=== PATIENT | female | born 1980 | race Caucasian/White ===

== ENCOUNTER 2017-03-26 15:34 | Emergency (ER) | payer OTHER ==
[2017-03-26 15:38] VITALS: BP 111/65; PULSE 98; TEMP 98; BMI 45.7
--- NOTE | 2017-03-26 15:56 | PDOC ---
History of Present Illness - General Chief Complaint: Pain Stated Complaint: PAIN Time Seen by Provider: 03/26/17 15:46 History Source: Patient Exam Limitations: No Limitations - History of Present Illness Initial Comments: CHIEF COMPLAINT: 37 y/o afebrile female, [employer] employee, c/o atraumatic left shoulder pain. HISTORY OF PRESENT ILLNESS: The patient states she woke up from sleep 2 days ago with left shoulder pain that is progressively getting worse. She cannot lift her left arm or put on a shirt without help. She denies trauma to the area , fall, heaving lifting. She has been taking Motrin for pain. Vital signs on arrival are notable for pulse of 98. REVIEW OF SYSTEMS: GENERAL/CONSTITUTIONAL: No fever/chills. No weakness. No weight change. HEAD, EYES, EARS, NOSE AND THROAT: No change in vision. No ear pain or discharge. No sore throat. MUSCULOSKELETAL: +left shoulder pain. No neck or back pain. SKIN: No rash or easy bruising. NEUROLOGIC: No headache, vertigo, loss of consciousness, or loss of sensation. PHYSICAL EXAM: VITAL_SIGNS: within normal limits GENERAL_APPEARANCE: alert, cooperative, mild obvious discomfort. The patient is holding her left arm at her side. MENTAL_STATUS: speech clear, oriented X 3, responds appropriately to questions. NEURO: motor intact and sensory intact in injured extremity. EXTREMITIES: Left anterior AC joint TTP with reproduction of pain radiating down left arm. Pt cannot abduct left arm > 30 degrees. Positive internal rotation lag test and external rotation resistance test. SKIN: warm, dry, good color. Past History - Past Medical History Allergies/Adverse Reactions: Allergies Allergy/AdvReac Type Severity Reaction Status Date / Time No Known Drug Allergies Allergy Verified 03/26/17 16:13 SEAFOOD Allergy Rash Uncoded 03/26/17 15:38 Home Medications: Ambulatory Orders Methocarbamol [Robaxin -] 1,000 mg PO TID #30 tablet 03/26/17 Asthma: Yes - Surgical History Cholecystectomy: Yes - Psycho/Social/Smoking Cessation Hx Anxiety: No Suicidal Ideation: No Smoking History: Former smoker Have you smoked in the past 12 months: No Number of Cigarettes Smoked Daily: 2 If you are a former smoker, when did you quit?: 1 YR Information on smoking cessation initiated: No Hx Alcohol Use: Yes (SOCIAL) Drug/Substance Use Hx: No Substance Use Type: None *Physical Exam - Vital Signs Last Vital Signs Temp Pulse Resp BP Pulse Ox 98.0 F 98 H 20 111/65 96 03/26/17 15:36 03/26/17 15:36 03/26/17 15:36 03/26/17 15:36 03/26/17 15:36 Medical Decision Making - Medical Decision Making A/P: 37 y/o female with most likely left rotator cuff tendinopathy. Plan is as follows: 1. Xray left shoulder 2. PO robaxin Xray left shoulder IMPRESSION: (wet read) No shoulder separation. The patient was given her results. Will discharge to home with rx for robaxin and instructed her to continue taking ibuprofen. Gave her stretches to perform multiple times/day and strongly encouraged Ortho follow up as soon as possible. Pt instructed to return to the ER with any worsening or concerning symptoms. The patient verbalizes understanding of all instructions, has no further questions and is awaiting discharge. *DC/Admit/Observation/Transfer Diagnosis at time of Disposition: Tendinopathy of left rotator cuff - Discharge Dispostion Disposition: HOME Condition at time of disposition: Good - Prescriptions Prescriptions: Methocarbamol [Robaxin -] 1,000 mg PO TID #30 tablet - Referrals Referrals: Rakesh Marino MD [Primary Care Provider] - Magnus Vázquez MD [Staff Physician] - - Patient Instructions Printed Discharge Instructions: DI for Rotator Cuff Injury, How To Perform RICE (Rest, Ice, Compress, Elevate) Additional Instructions: Discharge Instructions: -Continue taking Ibuprofen every 6 hours with food -Take Robaxin as prescribed; may cause drowsiness -Walk your left hand up the wall multiple times per day to prevent frozen shoulder -Follow RICE instructions -Follow up with Dr. Vázquez as soon as possible -Return to the ER with any worsening or concerning symptoms - Post Discharge Activity Work/School Note: Back to Work
[2017-03-26] MEDS ORDERED: METHOCARBAMOL 500 MG TABLET PO ONE (16:05)
== END 2017-03-26 17:22 | disposition home or self-care (01) ==
LOC: JERFT 15:34
DX: M65.812 Other synovitis and tenosynovitis, left shoulder (principal)
CPT/HCPCS: 73030-TC-LT; 99281-25

== ENCOUNTER 2017-11-24 10:23 | Emergency (ER) | payer OTHER ==
[2017-11-24 10:41] VITALS: BP 120/67; PULSE 83; TEMP 98; BMI 43.2
[2017-11-24] MEDS ORDERED: ALBUTEROL SO4 18 GM HFA INHALER IH ONE (11:20)
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
[2017-11-24] MEDS ORDERED: predniSONE 20 MG TABLET (UD) PO ONE (11:24)
[2017-11-24] MEDS ORDERED: predniSONE 20 MG TABLET (UD) ONE (11:36)
== END 2017-11-24 11:39 | disposition home or self-care (01) ==
LOC: JERFT 10:23 → JER 10:23 → JERFT 11:39
DX: O26.891 Other specified pregnancy related conditions, first trimester (principal); M54.5 Low back pain; Z3A.11 11 weeks gestation of pregnancy
CPT/HCPCS: 99281-25

== ENCOUNTER 2019-06-28 04:19 | Inpatient (IN) | payer OTHER ==
[2019-06-28] MEDS ORDERED: ALBUTEROL SO4 2.5/IPRATROPIUM 0.5 INH SOL 3 ML VIAL.NEB. NEB ONE ×3 (04:23→10:09)
[2019-06-28] MEDS ORDERED: methylPREDNISolone NA SUCC 125 MG/2 ML VIAL IVPB ONE (04:27)
[2019-06-28] MEDS ORDERED: methylPREDNISolone NA SUCC 125 MG/2 ML VIAL ONE (04:31)
[2019-06-28] MEDS ORDERED: MAGNESIUM 1GM/D5W - 1 GM/100 ML IVPB IVPB ONE ×2 (04:31→04:35)
--- NOTE | 2019-06-28 04:53 | PDOC ---
History of Present Illness - General Chief Complaint: Asthma Stated Complaint: ASTHMA Time Seen by Provider: 06/28/19 04:22 History Source: Patient Exam Limitations: No Limitations - History of Present Illness Initial Comments: 06/28/19 04:46 39F w/ pmh of asthma presents [facility] with complaint of wheezy cough w/a chest tightness since ~1999. At home, tried nebulized albuterol x4 w/ little relief. Last week had sickness w/ fever, rhinorrhea, sneezing, nonproductive cough. Took albuterol inhaler every night for a week. Last month, took inhaler occasionally, on hot nights. Denies sick contacts. Hasn't had an asthma attack requiring hospital visit since she was much younger. Formerly, had inhaled steroids but hasn't taken it since she was younger. Has a hypoallogenic poodle. Smokes socially. Timing/Duration: 4-6 hours Severity: moderate Associated Symptoms: reports: cough Past History - Travel Traveled outside of the country in the last 30 days: No Close contact w/someone who was outside of country & ill: No - Past Medical History Allergies/Adverse Reactions: Allergies Allergy/AdvReac Type Severity Reaction Status Date / Time No Known Drug Allergies Allergy Verified 06/28/19 04:28 SEAFOOD Allergy Rash Uncoded 06/28/19 04:28 Home Medications: Ambulatory Orders Albuterol 0.083% Nebulizer Mercedes [Ventolin 0.083%] 1 neb NEB Q4H PRN 06/28/19 Albuterol Sulfate Inhaler - [Ventolin Hfa Inhaler -] 1 - 2 inh PO PRN PRN Asthma: Yes COPD: No DVT: No Diabetes: Yes - Surgical History Cholecystectomy: Yes - Family Disease History Family Disease History: Diabetes: Mother (DM), Heart Disease: Mother - Immunization History Immunization Up to Date: Yes - Suicide/Smoking/Psychosocial Hx Smoking Status: Yes (social smoker) Have you smoked in the past 12 months: No Number of Cigarettes Smoked Daily: 2 If you are a former smoker, when did you quit?: 1 year ago Hx Alcohol Use: Yes Drug/Substance Use Hx: No Substance Use Type: None Review of Systems - Review of Systems Able to Perform ROS?: Yes Is the patient limited Nepali proficient: No Constitutional: No: Chills, Fever HEENTM: No: Blurred Vision, Double Vision, Difficulty Swallowing Respiratory: Yes: Cough, SOB at Rest, Wheezing Cardiac (ROS): Yes: Other (chest tightness). No: Irregular Heart Rate, Palpitations ABD/GI: No: Abdominal Distended, Constipated, Diarrhea, Nausea, Vomiting : No: Dysuria, Urgency Musculoskeletal: No: Muscle Weakness Integumentary: No: Bruising Neurological: No: Headache, Numbness *Physical Exam - Vital Signs Last Vital Signs Temp Pulse Resp BP Pulse Ox 98.3 F 106 H 26 H 161/70 100 06/28/19 04:26 06/28/19 04:26 06/28/19 04:26 06/28/19 04:26 06/28/19 04:26 - Physical Exam General Appearance: Yes: Nourished, Mild Distress, Obese HEENT: positive: Other (speaking in two-three word phrases prior to experiencing cough). negative: Pale Conjunctivae, Scleral Icterus (R), Scleral Icterus (L) Neck: positive: Trachea midline. negative: Tender, Stridor, Lymphadenopathy (R) , Lymphadenopathy (L) Respiratory/Chest: positive: Rapid RR, Wheezing (expiratory wheezes throughout lungs). negative: Crackles Cardiovascular: positive: Regular Rhythm, S1, S2, Tachycardia Gastrointestinal/Abdominal: positive: Soft. negative: Guarding, Rebound, Tenderness, Hernia Neurologic: positive: Fully Oriented, Alert ED Treatment Course - LABORATORY CBC & Chemistry Diagram: 06/28/19 05:30 06/28/19 05:30 Medical Decision Making - Medical Decision Making 06/28/19 05:14 39F w/ obesity and h/o of asthma presenting with nonproductive cough w/a wheezing and chest tightness likely 2/2 acute asthma exacerbation. - duonebs [id number] x3 - solumedrol 125mg - magnesium 2g at 100cc/h 06/28/19 05:57 - pt endorses slight improvement - lungs w/ continued expiratory wheezes 06/28/19 06:01 - decision to admit 06/28/19 06:48 - patient endorses feeling much better - able to speak short sentences - lungs with very mild expiratory wheezes *DC/Admit/Observation/Transfer Diagnosis at time of Disposition: Asthma attack Qualifiers: Asthma severity: severe Asthma persistence: unspecified Qualified Code(s): J45.901 - Unspecified asthma with (acute) exacerbation - Discharge Dispostion Condition at time of disposition: Stable Decision to Admit order: Yes - Referrals - Patient Instructions - Post Discharge Activity
--- NOTE | 2019-06-28 05:03 | PDOC ---
Attending Attestation - Resident Resident Name: Ferny Pan - ED Attending Attestation I have performed the following: I have examined & evaluated the patient, The case was reviewed & discussed with the resident, I agree w/resident's findings & plan - HPI HPI: 06/28/19 04:27 39-year-old female with asthma exacerbation, patient has tried multiple nebulizer treatments at home without relief - Physicial Exam PE: 06/28/19 05:03 agree with resident exam - Medical Decision Making 06/28/19 05:04 39-year-old female with asthma exacerbation Patient has had some improvement after additional nebulizer treatments Same Medrol 125 mg as well as magnesium 2 g IV piggyback currently being administered Plan for re-eval, at this point admission may be necessary if patient does not greatly improve
[2019-06-28 05:59] LABS: HEMATOCRIT 31.8 % (32.4-45.2); HEMOGLOBIN 10.5 GM/dL (10.7-15.3); MCH 27.1 pg (25.7-33.7); MEAN CELL VOLUME 82.1 fl (80-96); MEAN PLT VOLUME 9.3 fl (7.5-11.1); PLATELET COUNT 260 K/MM3 (134-434); RBC 3.88 M/mm3 (3.60-5.2); RDW 14.9 % (11.6-15.6); WHITE BLOOD COUNT 7.4 K/mm3 (4.0-10.0)
[2019-06-28] MEDS ORDERED: ALBUTEROL SO4 0.083% IH SOL 2.5 MG/3 ML VIAL.NEB. NEB ONE ×3 (06:10→18:03)
[2019-06-28 07:24] LABS: ALBUMIN 3.3 g/dl (3.4-5.0); BILIRUBIN,TOTAL 0.1 mg/dL (0.2-1); BLOOD UREA NITROGEN 8.6 mg/dL (7-18); CALCIUM 8.6 mg/dL (8.5-10.1); CREATININE 0.8 mg/dL (0.55-1.3); MAGNESIUM 2.8 mg/dL (1.8-2.4); POTASSIUM 3.6 mmol/L (3.5-5.1); TOT PROT 6.8 g/dl (6.4-8.2)
[2019-06-28] MEDS ORDERED: AZITHROMYCIN IVPB 500 MG/250 ML BAG IVPB ONE ×2 (08:44→09:00)
[2019-06-28] MEDS ORDERED: HEPARIN NA (PORCINE) 5,000 UNITS/ML 1ML VIAL ONE (08:44)
[2019-06-28] MEDS ORDERED: methylPREDNISolone NA SUCC 40 MG/1 ML VIAL ONE ×2 (08:45→18:02)
[2019-06-28] MEDS ORDERED: CEFTRIAXONE 1 GM/50 ML BAG ONE (08:45)
[2019-06-28] MEDS: HEPARIN NA (PORCINE) 5,000 UNITS/ML 1ML VIAL SQ SCH ×2 (09:09→21:11)
[2019-06-28] MEDS ORDERED: CEFTRIAXONE 1 GM in DEXTROSE 5%-WATER - 50 ML IVPB SCH (10:00)
[2019-06-28] MEDS ORDERED: methylPREDNISolone NA SUCC 40 MG/1 ML VIAL IVPUSH SCH (10:00)
[2019-06-28] MEDS: ALBUTEROL SO4 2.5/IPRATROPIUM 0.5 INH SOL 3 ML VIAL.NEB. NEB PRN (10:15)
--- NOTE | 2019-06-28 11:57 | CON.PULM ---
Consult Consult Specialty:: PULM/CCM Referred by:: CHRIS Reason for Consultation:: SOB - History of Present Illness Chief Complaint: SOB History of Present Illness: 39 F, remote history of asthma as a child. Last acute exacerbation was age 13. Since that time very sporadic use of Albuterol. Never intubated or steroid dependent. Unknown PEF. @ weeks ago developed ENT / URI symptoms. Late last night had progressive SOB that was not alleviated by her nebulizer. No recent travel history or sick contacts. Does have daily GERD symptoms. According to her she does snore and does have witnessed apneas. CXR: normal - History Source Limitations to Obtaining History: No Limitations - Past Medical History Pulmonary: Yes: Asthma, Bronchitis, Sleep Apnea. No: Cancer, COPD, O2 Dependent , Pneumonia, Previously Intubated, Pulmonary Embolus, Pulmonary Fibrosis - Alcohol/Substance Use Hx Alcohol Use: Yes - Smoking History Smoking history: Unknown if ever smoked Have you smoked in the past 12 months: No Aproximately how many cigarettes per day: 2 If you are a former smoker, when did you quit?: 1 year ago Home Medications - Allergies Allergies/Adverse Reactions: Allergies Allergy/AdvReac Type Severity Reaction Status Date / Time No Known Drug Allergies Allergy Verified 06/28/19 04:28 SEAFOOD Allergy Rash Uncoded 06/28/19 04:28 - Home Medications Home Medications: Ambulatory Orders Albuterol 0.083% Nebulizer Mercedes [Ventolin 0.083%] 1 neb NEB Q4H PRN 06/28/19 Albuterol Sulfate Inhaler - [Ventolin Hfa Inhaler -] 1 - 2 inh PO PRN PRN Review of Systems - Review of Systems Constitutional: reports: Malaise. denies: Chills, Fever, Night Sweats, Unintentional Wgt. Loss Eyes: reports: No Symptoms HENT: reports: No Symptoms Neck: reports: No Symptoms Cardiovascular: reports: Shortness of Breath. denies: Chest Pain, Edema, Palpitations Respiratory: reports: Cough, Snoring, SOB, SOB on Exertion, Wheezing. denies: Hemoptysis, Orthopnea, PND Gastrointestinal: reports: Indigestion Genitourinary: reports: No Symptoms Breasts: reports: No Symptoms Reported Musculoskeletal: reports: No Symptoms Integumentary: reports: No Symptoms Neurological: reports: No Symptoms Endocrine: reports: No Symptoms Hematology/Lymphatic: reports: No Symptoms Psychiatric: reports: No Symptoms Physical Exam Vital Sings: Vital Signs Temperature 98.3 F 06/28/19 04:26 Pulse Rate 106 H 06/28/19 04:26 Respiratory Rate 26 H 06/28/19 04:26 Blood Pressure 161/70 06/28/19 04:26 O2 Sat by Pulse Oximetry (%) 97 06/28/19 08:28 Constitutional: Yes: No Distress, Obese Eyes: Yes: Conjunctiva Clear, EOM Intact HENT: Yes: Atraumatic, Normocephalic Neck: Yes: Supple, Trachea Midline Cardiovascular: Yes: Regular Rate and Rhythm Respiratory: Yes: Cough, Diminished, Rhonchi, SOB, SOB on Exertion, Tachypnea, Wheezes. No: Accessory Muscle Use, Rales, Stridor ...Inspection: Yes: WNL ...Clubbing: No Gastrointestinal: Yes: Normal Bowel Sounds, Soft, Abdomen, Obese Renal/: Yes: WNL Musculoskeletal: Yes: WNL Extremities: Yes: WNL Edema: No Peripheral Pulses WNL: Yes Integumentary: Yes: WNL Neurological: Yes: WNL, Alert, Oriented ...Motor Strength: WNL Psychiatric: Yes: WNL, Alert, Oriented Labs: CBC, BMP 06/28/19 05:30 06/28/19 05:30 Imaging - Results Chest X-ray: Report Reviewed, Image Reviewed Problem List - Problems (1) Morbid obesity Code(s): E66.01 - MORBID (SEVERE) OBESITY DUE TO EXCESS CALORIES (2) Acute bronchitis Code(s): J20.9 - ACUTE BRONCHITIS, UNSPECIFIED (3) Sleep apnea Code(s): G47.30 - SLEEP APNEA, UNSPECIFIED (4) Asthma attack Code(s): J45.901 - UNSPECIFIED ASTHMA WITH (ACUTE) EXACERBATION Qualifiers: Asthma severity: severe Asthma persistence: unspecified Qualified Code(s) : J45.901 - Unspecified asthma with (acute) exacerbation Assessment/Plan Medrol BD TX standing and PRN O2 as needed No smoking Will need sleep screen as an outpatient Singulair Will need GERD management Would monitor off ABX Will need PFTs once stable as an outpatient Daily AM PEF ordered Will follow Thank you. Dr Brar
--- NOTE | 2019-06-28 13:49 | EKG ---
Test Reason : Blood Pressure : / mmHG Vent. Rate : 106 BPM Atrial Rate : 106 BPM P-R Int : 132 ms QRS Dur : 088 ms QT Int : 358 ms P-R-T Axes : 055 002 -03 degrees QTc Int : 475 ms SINUS TACHYCARDIA MINIMAL VOLTAGE CRITERIA FOR LVH, MAY BE NORMAL VARIANT NONSPECIFIC T WAVE ABNORMALITY ABNORMAL ECG NO PREVIOUS ECGS AVAILABLE Confirmed by FRANCI SANCHEZ MD ([id number]) on 06/28/2019 1:48:49 PM Referred By: Confirmed By:FRANCI SANCHEZ MD
[2019-06-28] MEDS: ALBUTEROL SO4 0.083% IH SOL 2.5 MG/3 ML VIAL.NEB. NEB SCH ×3 (13:56→21:25)
[2019-06-28] MEDS: methylPREDNISolone NA SUCC 125 MG/2 ML VIAL IVPUSH SCH (18:21)
[2019-06-28] MEDS ORDERED: MONTELUKAST NA 10 MG TABLET PO SCH (22:00)
[2019-06-28 23:53] VITALS: BMI 49.8
--- NOTE | 2019-06-29 00:32 | HP ---
Admitting History and Physical - Admission History of Present Illness: Pt is a 39 y/o female w/ pmh significant for asthma. Pt presents to the ER with complaint of wheezy cough w/a chest tightness that developed suddenly the night prior to admission. At home pt used nebulized albuterol x4 w/ little relief. Last week had sickness w/ fever, rhinorrhea, sneezing, nonproductive cough. Took albuterol inhaler every night for a week. Pt hasn't had an asthma attack requiring hospital visit since childhoodr. Formerly, had inhaled steroids but hasn't taken it since she was younger. - Past Medical History Pulmonary: Yes: Asthma, Sleep Apnea - Smoking History Smoking history: Unknown if ever smoked Have you smoked in the past 12 months: No Aproximately how many cigarettes per day: 2 If you are a former smoker, when did you quit?: 1 year ago - Alcohol/Substance Use Hx Alcohol Use: Yes Home Medications - Allergies Allergies/Adverse Reactions: Allergies Allergy/AdvReac Type Severity Reaction Status Date / Time No Known Drug Allergies Allergy Verified 06/28/19 04:28 SEAFOOD Allergy Rash Uncoded 06/28/19 04:28 - Home Medications Home Medications: Ambulatory Orders Albuterol 0.083% Nebulizer Mercedes [Ventolin 0.083%] 1 neb NEB Q4H PRN 06/28/19 Albuterol Sulfate Inhaler - [Ventolin Hfa Inhaler -] 1 - 2 inh PO PRN PRN Family Disease History - Family Disease History Family History: Unremarkable Review of Systems - Review of Systems Constitutional: reports: Lethargy Eyes: reports: No Symptoms HENT: reports: No Symptoms Neck: reports: No Symptoms Cardiovascular: reports: Shortness of Breath Respiratory: reports: Cough, SOB, Wheezing Gastrointestinal: reports: No Symptoms Genitourinary: reports: No Symptoms Physical Examination Vital Signs: Vital Signs Temperature 98.2 F 06/28/19 12:00 Pulse Rate 115 H 06/28/19 15:31 Respiratory Rate 20 06/28/19 15:31 Blood Pressure 142/82 06/28/19 15:31 O2 Sat by Pulse Oximetry (%) 98 06/28/19 15:31 Constitutional: Yes: Well Nourished, Obese Eyes: Yes: WNL HENT: Yes: WNL Neck: Yes: WNL, Supple Cardiovascular: Yes: WNL, Regular Rate and Rhythm, Tachycardia Respiratory: Yes: Wheezes Gastrointestinal: Yes: WNL, Normal Bowel Sounds, Soft, Abdomen, Obese Extremities: Yes: WNL Edema: No Neurological: Yes: WNL, Alert, Oriented ...Motor Strength: WNL Labs: CBC, BMP 06/28/19 05:30 06/28/19 05:30 Problem List - Problems (1) Asthma exacerbation Assessment/Plan: Cont IV [id number] Cont nebulizers Pulmonary consult Will dc antibxs CXR was normal and WBC was normal Code(s): J45.901 - UNSPECIFIED ASTHMA WITH (ACUTE) EXACERBATION (2) Morbid obesity Code(s): E66.01 - MORBID (SEVERE) OBESITY DUE TO EXCESS CALORIES
[2019-06-29] MEDS: methylPREDNISolone NA SUCC 125 MG/2 ML VIAL IVPUSH SCH ×2 (02:07→10:01)
[2019-06-29] MEDS: ALBUTEROL SO4 2.5/IPRATROPIUM 0.5 INH SOL 3 ML VIAL.NEB. NEB PRN (06:13)
[2019-06-29 07:08] LABS: BASO % 0.1 % (0-2.0); HEMATOCRIT 33.7 % (32.4-45.2); LYMPH % 7.2 % (8-40); MCH 26.9 pg (25.7-33.7); MCHC 32.7 g/dl (32.0-36.0); MEAN CELL VOLUME 82.3 fl (80-96); MEAN PLT VOLUME 9.9 fl (7.5-11.1); MONO % 2.4 % (3.8-10.2); NEUT % 90.3 % (42.8-82.8); PLATELET COUNT 307 K/MM3 (134-434); RBC 4.09 M/mm3 (3.60-5.2); RDW 15.3 % (11.6-15.6); WHITE BLOOD COUNT 18.2 K/mm3 (4.0-10.0)
[2019-06-29 07:30] LABS: ALBUMIN 3.5 g/dl (3.4-5.0); BILIRUBIN,TOTAL 0.3 mg/dL (0.2-1); BLOOD UREA NITROGEN 13.8 mg/dL (7-18); CALCIUM 9.4 mg/dL (8.5-10.1); CREATININE 0.8 mg/dL (0.55-1.3); POTASSIUM 4.3 mmol/L (3.5-5.1); TOT PROT 7.5 g/dl (6.4-8.2)
[2019-06-29] MEDS: ALBUTEROL SO4 0.083% IH SOL 2.5 MG/3 ML VIAL.NEB. NEB SCH ×3 (08:17→16:18)
[2019-06-29] MEDS ORDERED: PNEUMOC 13-VAL CONJ-DIP CRM/PF 0.5 ML DISP.SYRIN IM ONE (10:00)
[2019-06-29] MEDS: HEPARIN NA (PORCINE) 5,000 UNITS/ML 1ML VIAL SQ SCH (10:02)
--- NOTE | 2019-06-29 14:02 | PN ---
Progress Note (short form) - Note Progress Note: PULMONARY Feels close to baseline. Less cough and no wheezing. Peak flow this AM 490. Vital Signs Period Temp Pulse Resp BP Sys/Monk Pulse Ox Last 24 Hr 98 F-98.5 F 86-115 20-24 111-142/68-82 95-98 Gen: NAD at rest Heart: RRR Lung: distant breath sounds Abd: soft, nontender Ext: trace edema CBC, BMP 06/29/19 06:20 06/29/19 06:20 Active Medications Albuterol Sulfate (Ventolin 0.083% Nebulizer Soln -) 1 amp NEB RQID CHAS Last Admin: 06/29/19 11:34 Dose: 1 amp Albuterol/Ipratropium (Duoneb -) 1 amp NEB Q6H PRN PRN Reason: SHORTNESS OF BREATH Last Admin: 06/29/19 06:13 Dose: 1 amp Heparin Sodium (Porcine) (Heparin -) 5,000 unit SQ BID CHAS Last Admin: 06/29/19 10:02 Dose: 5,000 unit Methylprednisolone Sodium Succinate (Solu-Medrol -) 80 mg IVPUSH Q8H-IV CHAS Last Admin: 06/29/19 10:01 Dose: 80 mg Montelukast Sodium (Singulair -) 10 mg PO HS CHAS Last Admin: 06/28/19 21:10 Dose: 10 mg A/P Acute Asthma Exacerbation Morbid Obesity Likely ANTWAN - can change steroids to PO prednisone 60mg daily and taper as outpt - inhaled bronchodilators - monitor peak flow - outpt PFTs, PSG - DVT prophylaxis - can d/c home from pulmonary standpoint
[2019-06-29] MEDS ORDERED: predniSONE 20 MG TABLET (UD) PO SCH (14:15)
[2019-06-29 14:48] VITALS: BP 126/80; PULSE 91; TEMP 97.9
== END 2019-06-29 16:52 | disposition home or self-care (01) | DRG 202 ==
LOC: JER 04:19 → JERBED 06:02 → J5S 20:03
PROVIDERS: ADMIT Internal Medicine; ATTEND Internal Medicine
PROC: 3E0F7GC Introduction of Other Therapeutic Substance into Respiratory Tract, Via Natural or Artificial Opening (ICD-10-PCS; principal; 2019-06-28)
DX: J45.901 Unspecified asthma with (acute) exacerbation (principal); Z68.42 Body mass index [BMI] 45.0-49.9, adult; F17.210 Nicotine dependence, cigarettes, uncomplicated; E11.9 Type 2 diabetes mellitus without complications; Z79.84 Long term (current) use of oral hypoglycemic drugs; E66.01 Morbid (severe) obesity due to excess calories; G47.30 Sleep apnea, unspecified
CPT/HCPCS: 36415; 71045-TC-FY; 80053; 83036; 83735; 84703; 85025; 85027; 90670; 93005; 93010; 94150; 94640; 99285-25; J1644

== ENCOUNTER 2023-02-15 01:29 | Emergency (ER) | payer OTHER ==
[2023-02-15 01:38] VITALS: RESP 17; TEMP 98; BMI 41.5
[2023-02-15 03:14] VITALS: BP 122/74; PULSE 90
== END 2023-02-15 03:14 | disposition home or self-care (01) ==
LOC: FER 01:29
DX: S00.03XA Contusion of scalp, initial encounter (principal); S00.83XA Contusion of other part of head, initial encounter; W22.8XXA Striking against or struck by other objects, initial encounter; Y00.XXXA Assault by blunt object, initial encounter
CPT/HCPCS: 70450-TC; 99284-25

== ENCOUNTER 2023-12-28 10:15 | Emergency (ER) | payer OTHER ==
[2023-12-28 10:33] VITALS: BP 140/87; PULSE 99; RESP 17; TEMP 99.1; BMI 40.7
[2023-12-28] MEDS ORDERED: FAMOTIDINE 20 MG/50 ML IVPB 20 MG/50 ML MG IVPB ONE (10:38)
[2023-12-28] MEDS ORDERED: ONDANSETRON 4 MG/2 ML VIAL ONE (10:38)
[2023-12-28] MEDS: SODIUM CHLORIDE 0.9% 500 ML INFUS.BAG IV ONE (10:44)
[2023-12-28] MEDS: ONDANSETRON 4 MG/2 ML VIAL IVPUSH ONE (10:44)
[2023-12-28] MEDS: FAMOTIDINE 20 MG/50 ML IVPB 20 MG/50 ML MG IVPB ONE (10:44)
[2023-12-28 11:01] LABS: HEMATOCRIT 39.6 % (32.4-45.2); MCH 26.5 pg (25.7-33.7); MCHC 32.8 g/dl (32.0-36.0); MEAN CELL VOLUME 80.8 fl (80-96); MEAN PLT VOLUME 9.4 fl (7.5-11.1); PLATELET COUNT 260.7 10^3/uL (134-434); RDW 15.5 % (11.6-15.6); WHITE BLOOD COUNT 5.5 10^3/uL (4.0-10.8)
[2023-12-28 11:07] LABS: PLATELET ESTIMATE ADEQUATE
[2023-12-28 11:09] LABS: BILIRUBIN,TOTAL 0.6 mg/dl (0.2-1); CREATININE 0.6 mg/dl (0.6-1.3); POTASSIUM 3.6 mmol/L (3.5-5.1); TOT PROT 6.9 g/dl (6.4-8.2)
== END 2023-12-28 12:20 | disposition home or self-care (01) ==
LOC: FER 10:15
PROC: 3E033GC Introduction of Other Therapeutic Substance into Peripheral Vein, Percutaneous Approach (ICD-10-PCS; principal; 2023-12-28)
PROC: 3E033GC Introduction of Other Therapeutic Substance into Peripheral Vein, Percutaneous Approach (ICD-10-PCS; 2023-12-28)
DX: R11.2 Nausea with vomiting, unspecified (principal); R19.7 Diarrhea, unspecified
CPT/HCPCS: 36415; 80053; 83690; 84703; 85027; 99284-25